=== PATIENT | female | born 1970 | race Caucasian/White ===

== ENCOUNTER 2016-12-16 02:22 | Emergency (ER) | payer OTHER ==
[~2016-12-16] VITALS: Ht 170.2 cm; Wt 90.7 kg
[2016-12-16] MEDS ORDERED: METF500T4 PO (02:36)
[2016-12-16] MEDS ORDERED: PSEU30TA37 PO (02:36)
[2016-12-16] MEDS ORDERED: OMEP20TA7 PO (02:36)
[2016-12-16] MEDS ORDERED: TIZA4CAP PO (02:47)
[2016-12-16] MEDS ORDERED: METH4TAB PO (02:47)
[2016-12-16] MEDS ORDERED: TRAM-42 PO (02:47)
--- NOTE | 2016-12-16 02:47 | ED Back Pain ---
General Chief Complaint: Back Problems Stated Complaint: LEFT LEG & BACK PAIN Nursing Triage Note: LOWER BACK PAIN RADIATING TO RIGHT LEG Nursing Sepsis Screen: No Definite Risk Source of Information: Patient History of Present Illness Time Seen by Provider: 02:30 Initial Comments PT ARRIVES VIA POV--DROVE SELF HERE PT C/O LOW BACK PAIN RADIATING DOWN LEFT LEG THIS IS A CHRONIC PROBLEM FOR AT LEAST 3 YEARS, AND HAS BEEN WORSE SINCE SUNDAY EVENING 12/14/16 C/O TINGLING AND "HOT SPOTS" TO VARIOUS PARTS OF LEFT LEG AND FOOT--ALSO A CHRONIC PROBLEM NO DIFFICULTY WITH BOWEL OR BLADDER FUNCTION NO RECENT INJURY OR UNUSUAL ACTIVITY PT STATES SHE HAD A WORK RELATED INJURY 4 YEARS AGO--WAS BENDING OVER AND SOMEONE RAN INTO THE BACK OF HER AND HAS HAD PAIN IN LOWER BACK SINCE. RADIATION OF PAIN DOWN LEFT LEG IS ALSO A CHRONIC PROBLEM PT STATES SHE HAS PROBLEMS WITH DISCS AT L4 - L5 AND L5-S1 HAS NOT HAD SURGERY, BUT GOES TO PAIN MANAGEMENT IN [facility] AND HAS EPIDURAL SHOTS EVERY 3-4 MONTHS, LAST ONE WAS IN AUGUST PT STATES SHE MOVED HERE IN APRIL OF THIS YEAR, FROM [facility]--WORKS AT [employer] [facility] [place] HAS NOT ATTEMPTED TO ESTABLISH CARE WITH ANY LOCAL PHYSICIAN, AND STATES SHE PLANS ON CONTINUING TO HAVE ALL OF HER MEDICAL CARE DONE IN [place] AND AT [facility] [place]. PT STATES [facility] AT THE [facility] [place] [facility] THIS SAME PROBLEM, WAS GIVEN STEROIDS WITH TEMPORARY RELIEF. Allergies and Home Medications Allergies Coded Allergies: Penicillins (Verified Allergy, Unknown, 12/16/16) Sulfa (Sulfonamide Antibiotics) (Verified Allergy, Unknown, 12/16/16) acetaminophen (Verified Allergy, Unknown, 12/16/16) hydrocodone (Verified Allergy, Unknown, 12/16/16) latex (Verified Allergy, Unknown, 12/16/16) Home Medications Metformin HCl 500 Mg Tablet, Unknown Dose PO, (Reported) Methylprednisolone 4 Mg Tab.ds.pk, 4 MG PO UD, #1 Prescribed by: QI KOEHLER on 12/16/16 0247 Omeprazole 20 Mg Tablet.dr, 20 MG PO, (Reported) Pseudoephedrine HCl 30 Mg Tablet, Unknown Dose PO, (Reported) Tizanidine HCl 4 Mg Capsule, 4 MG PO TID, #15 Prescribed by: QI KOEHLER on 12/16/167 Tramadol HCl 50 Mg Tablet, 50 MG PO Q4H, #20 Prescribed by: QI KOEHLER on 12/16/167 Constitutional: no symptoms reported Respiratory: no symptoms reported Cardiovascular: no symptoms reported Gastrointestinal: no symptoms reported Genitourinary: no symptoms reported Control/STD Prophylaxis: Other (BTL) Musculoskeletal: see HPI, back pain Skin: no symptoms reported Psychiatric/Neurological: See HPI, Paresthesia Past Skcamld-Ozisom-Wakvdu Hx Patient Social History Alcohol Use: Denies Use Recreational Drug Use: No Smoking Status: Never a Smoker Recent Foreign Travel: No Contact w/Someone Who Travel: No Recent Infectious Disease Expo: No Recent Hopitalizations: No Immunizations Up To Date Tetanus Booster (TDap): Unknown Seasonal Allergies Seasonal Allergies: No Surgeries History of Surgeries: Yes (RIGHT SHOULDER, ELBOW SURGERY) Surgeries: Section, Orthopedic, Tubal Ligation Respiratory History of Respiratory Disorde: No Cardiovascular History of Cardiac Disorders: No Neurological History of Neurological Disord: No Reproductive System : No 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 Genitourinary History of Genitourinary Disor: No Gastrointestinal History of Gastrointestinal Di: Yes Gastrointestinal Disorders: Gastroesophageal Reflux Musculoskeletal History of Musculoskeletal Dis: Yes (CHRONIC LOWER BACK PAIN WITH CHRONIC LEFT SIDED SCIATICA) Musculoskeletal Disorders: Degenerate Disk Disease, Chronic Back Pain Endocrine History of Endocrine Disorders: Yes ("HORMONE RESISTANCE" --"THYROID, ESTROGEN AND INSULIN RESISTANT" PER PT--OBESITY) Endocrine Disorders: Diabetes, Non-Insulin dep HEENT History of HEENT Disorders: No Cancer History of Cancer: No Psychosocial History of Psychiatric Problem: No Integumentary History of Skin or Integumenta: No Blood Transfusions History of Blood Disorders: No Physical Exam Vital Signs Vital Sign - Last 12Hours 12/16/16 02:36 Temp 96.5 Pulse 93 Resp 18 B/P (MAP) 131/97 Pulse Ox 97 O2 Delivery Room Air Capillary Refill : Less Than 3 Seconds General Appearance: No Apparent Distress, Obese, Other (VERY DRAMATIC) Neck: Normal Inspection Cardiovascular: Regular Rate, Rhythm, No Edema, No Murmur, Normal Peripheral Pulses Respiratory: Normal Breath Sounds Gastrointestinal: Soft Back: Other (TENDERNESS TO LUMBAR AREA WITH PINPOINT TENDERNESS OVER LEFT SI JOINT, + LEFT STRAIGHT LEG RAISING AT LESS THAN 30 DEGREES. EXAGGERATED PAIN RESPONSE. 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 Referrals: NO,LOCAL PHYSICIAN (PCP/Family) Primary Care Physician Patient Instructions: MANAGING YOUR CHRONIC PAIN, Sciatica (DC) Add. Discharge Instructions: ALTERNATE ICE AND HEAT TO SORE AREAS AT 20 MINUTE INTERVALS FOLLOW UP WITH DRJuan Jose OF CHOICE NEXT WEEK FOR FURTHER CARE AND TO ESTABLISH CARE WITH LOCAL DR. --LIST PROVIDED All discharge instructions reviewed with patient and/or family. Voiced understanding. 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
[2016-12-16] MEDS: KETOROLAC 60 MG/2 ML VIAL IM ONE (02:50)
[2016-12-16 02:56] VITALS: BP 131/97
== END 2016-12-16 02:54 | disposition home or self-care (01) ==
LOC: ER 02:26
DX: M54.32 Sciatica, left side (principal); K21.9 Gastro-esophageal reflux disease without esophagitis; E11.9 Type 2 diabetes mellitus without complications; Z79.84 Long term (current) use of oral hypoglycemic drugs; Z98.51 Tubal ligation status; Z87.59 Personal history of other complications of pregnancy, childbirth and the puerperium
CPT/HCPCS: 99284

== ENCOUNTER 2017-03-28 03:21 | Emergency (ER) | payer OTHER ==
[~2017-03-28] VITALS: Ht 170.2 cm; Wt 90.7 kg
[~2017-03-28 03:21] MED LIST: METF500T4 PO; METH4TAB PO; OMEP20TA7 PO; PSEU30TA37 PO; TIZA4CAP PO; TRAM-42 PO
[2017-03-28] MEDS ORDERED: NS IV 1000 ML 1,000 ML IV ONE (03:53)
[2017-03-28] MEDS ORDERED: KETOROLAC 30 MG/ML VIAL IVP ONE (04:00)
[2017-03-28] MEDS ORDERED: ONDANSETRON 4 MG/2 ML (SDV) Z0FRAN IVP ONE (04:00)
[2017-03-28 04:17] LABS: BASOPHILS % (AUTO) 0 % (0-10); EOSINOPHILS % (AUTO) 0 % (0-10); HEMATOCRIT 41 % (35-52); HEMOGLOBIN 14.2 G/DL (11.5-16.0); LYMPHOCYTES # (AUTO) 0.5 X 10^3 (1.0-4.0); LYMPHOCYTES % (AUTO) 10 % (12-44); MEAN CORPUSCULAR HEMOGLOBIN 30 PG (25-34); MEAN CORPUSCULAR HGB CONC 35 G/DL (32-36); MEAN CORPUSCULAR VOLUME 88 FL (80-99); MEAN PLATELET VOLUME 10.5 FL (7.4-10.4); MONOCYTES # (AUTO) 0.5 X 10^3 (0.0-1.0); MONOCYTES % (AUTO) 9 % (0-12); NEUTROPHILS # (AUTO) 3.9 X 10^3 (1.8-7.8); NEUTROPHILS % (AUTO) 80 % (42-75); PLATELET COUNT 159 10^3/uL (130-400); RED BLOOD COUNT 4.71 10^6/uL (4.35-5.85); RED CELL DISTRIBUTION WIDTH 12.7 % (10.0-14.5); WHITE BLOOD COUNT 4.8 10^3/uL (4.3-11.0)
[2017-03-28 04:39] LABS: ALANINE AMINOTRANSFERASE 30 U/L (0-55); ALBUMIN 3.6 GM/DL (3.2-4.5); ALKALINE PHOSPHATASE 62 U/L (40-136); BILIRUBIN,TOTAL 0.4 MG/DL (0.1-1.0); BUN/CREATININE RATIO 12; CALCIUM 9.2 MG/DL (8.5-10.1); CARBON DIOXIDE 24 MMOL/L (21-32); CHLORIDE 103 MMOL/L (98-107); CREATININE SERUM 0.93 MG/DL (0.60-1.30); GFR ESTIMATED > 60; GLUCOSE 129 MG/DL (70-105); SODIUM 137 MMOL/L (135-145); TOTAL PROTEIN 7.1 GM/DL (6.4-8.2)
[2017-03-28] MEDS ORDERED: ONDA4TAB8 SL (04:54)
[2017-03-28] MEDS ORDERED: OSLT75C PO (04:54)
--- NOTE | 2017-03-28 04:55 | ED General ---
General Chief Complaint: Cough/Cold/Flu Symptoms Stated Complaint: FEVER,VOMITING,WEAK,BACK OF NECK HURTS Nursing Triage Note: cough, fever, neck pain vomitting x3 days Nursing Sepsis Screen: Possible Sepsis Risk Source of Information: Patient Exam Limitations: No Limitations History of Present Illness Date Seen by Provider: Mar 28, 2017 Time Seen by Provider: 03:25 Initial Comments This 46-year-old woman presents to the emergency room with cough, fever, nausea , vomiting, neck ache, and weakness that started last night. Allergies and Home Medications Allergies Coded Allergies: Penicillins (Verified Allergy, Unknown, 12/16/16) Sulfa (Sulfonamide Antibiotics) (Verified Allergy, Unknown, 12/16/16) acetaminophen (Verified Allergy, Unknown, 12/16/16) hydrocodone (Verified Allergy, Unknown, 12/16/16) latex (Verified Allergy, Unknown, 12/16/16) Home Medications Metformin HCl 500 Mg Tablet, Unknown Dose PO, (Reported) Ondansetron 4 Mg Tab.rapdis, 4 MG SL Q4H PRN for NAUSEA/VOMITING-1ST LINE, #10 Prescribed by: DEDE MOYA on 03/28/17 0454 Oseltamivir Phosphate 75 Mg Cap, 75 MG PO BID, #10 Prescribed by: DEDE MOYA on 03/28/17 0454 Constitutional: see HPI EENTM: no symptoms reported Respiratory: see HPI Cardiovascular: no symptoms reported Gastrointestinal: see HPI Genitourinary: no symptoms reported : No Musculoskeletal: see HPI Skin: no symptoms reported Psychiatric/Neurological: No Symptoms Reported Hematologic/Lymphatic: No Symptoms Reported Past Oojmfml-Gbdzgt-Pddray Hx Patient Social History Alcohol Use: Denies Use Recreational Drug Use: No Recent Foreign Travel: No Contact w/Someone Who Travel: No Recent Infectious Disease Expo: No Recent Hopitalizations: No Immunizations Up To Date Tetanus Booster (TDap): Unknown Seasonal Allergies Seasonal Allergies: No Surgeries History of Surgeries: Yes (RIGHT SHOULDER, left ulnar nerve entrapment) Surgeries: Abdominal (uterine ablation), Section, Gallbladder, Orthopedic, Tubal Ligation Respiratory History of Respiratory Disorde: No Cardiovascular History of Cardiac Disorders: No Neurological History of Neurological Disord: No Reproductive System : 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 Genitourinary History of Genitourinary Disor: No Gastrointestinal History of Gastrointestinal Di: Yes Gastrointestinal Disorders: Gastroesophageal Reflux Musculoskeletal History of Musculoskeletal Dis: Yes (CHRONIC LOWER BACK PAIN WITH CHRONIC LEFT SIDED SCIATICA) Musculoskeletal Disorders: Degenerate Disk Disease, Chronic Back Pain Endocrine History of Endocrine Disorders: Yes Endocrine Disorders: Diabetes, Non-Insulin dep (insulin resistant or prediabetic) HEENT History of HEENT Disorders: No Cancer History of Cancer: No Psychosocial History of Psychiatric Problem: No Integumentary History of Skin or Integumenta: No Blood Transfusions History of Blood Disorders: No Physical Exam Vital Signs Vital Signs - First Documented 03/28/17 03:30 Temp 100.5 Pulse 96 Resp 18 B/P (MAP) 147/101 (116) Pulse Ox 95 O2 Delivery Room Air Capillary Refill : Less Than 3 Seconds General Appearance: No Apparent Distress, WD/WN HEENT: PERRL/EOMI, TMs Normal, Normal ENT Inspection, Pharynx Normal Neck: Full Range of Motion, Normal Inspection, Supple Respiratory: Lungs Clear, Normal Breath Sounds, No Accessory Muscle Use, No Respiratory Distress Cardiovascular: Regular Rate, Rhythm, No Edema, No Murmur Gastrointestinal: Normal Bowel Sounds, Non Tender, Soft Extremity: Normal Inspection, No Pedal Edema Neurologic/Psychiatric: Alert, Oriented x3, No Motor/Sensory Deficits, Normal Mood/Affect, 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3-11.0 10^3/uL Red Blood Count 4.71 4.35-5.85 10^6/uL Hemoglobin 14.2 11.5-16.0 G/DL Hematocrit 41 35-52 % Mean Corpuscular Volume 88 80-99 FL Mean Corpuscular Hemoglobin 30 25-34 PG Mean Corpuscular Hemoglobin Concent 35 32-36 G/DL Red Cell Distribution Width 12.7 10.0-14.5 % Platelet Count 159 130-400 10^3/uL Mean Platelet Volume 10.5 H 7.4-10.4 FL Neutrophils (%) (Auto) 80 H 42-75 % Lymphocytes (%) (Auto) 10 L 12-44 % Monocytes (%) (Auto) 9 0-12 % Eosinophils (%) (Auto) 0 0-10 % Basophils (%) (Auto) 0 0-10 % Neutrophils # (Auto) 3.9 1.8-7.8 X 10^3 Lymphocytes # (Auto) 0.5 L 1.0-4.0 X 10^3 Monocytes # (Auto) 0.5 0.0-1.0 X 10^3 Eosinophils # (Auto) 0.0 0.0-0.3 10^3/uL Basophils # (Auto) 0.0 0.0-0.1 10^3/uL Sodium Level 137 135-145 MMOL/L Potassium Level 4.0 3.6-5.0 MMOL/L Chloride Level 103 98-107 MMOL/L Carbon Dioxide Level 24 21-32 MMOL/L Anion Gap 10 5-14 MMOL/L Blood Urea Nitrogen 11 7-18 MG/DL Creatinine 0.93 0.60-1.30 MG/DL Estimat Glomerular Filtration Rate > 60 BUN/Creatinine Ratio 12 Glucose Level 129 H 70-105 MG/DL Calcium Level 9.2 8.5-10.1 MG/DL Total Bilirubin 0.4 0.1-1.0 MG/DL Aspartate Amino Transf (AST/SGOT) 35 H 5-34 U/L Alanine Aminotransferase (ALT/SGPT) 30 0-55 U/L Alkaline Phosphatase 62 40-136 U/L Total Protein 7.1 6.4-8.2 GM/DL Albumin 3.6 3.2-4.5 GM/DL Micro Results Microbiology 03/28/17 Influenza Types A,B Antigen (RAVI) - Final, Complete My Orders Orders - DEDE BROWN MD Cbc With Automated Diff (03/28/17 03:53) Comprehensive Metabolic Panel (03/28/17 03:53) Chest Pa/Lat (2 View) (03/28/17 03:53) Saline Lock/Iv-Start (03/28/17 03:53) Ns Iv 1000 Ml (Sodium Chloride 0.9%) (03/28/17 03:53) Ondansetron Injection (Zofran Injectio (03/28/17 04:00) Ketorolac Injection (Toradol Injection) (03/28/17 04:00) Influenza A And B Antigens (03/28/17 04:12) Medications Given in ED Current Medications Medications Dose Ordered Sig/Fern Route Start Time Stop Time Status Last Admin Dose Admin Ketorolac Tromethamine 30 mg ONCE ONCE IVP 03/28/17 04:00 03/28/17 04:01 DC 03/28/17 04:08 30 MG Ondansetron HCl 8 mg ONCE ONCE IVP 03/28/17 04:00 03/28/17 04:01 DC 03/28/17 04:07 8 MG Sodium Chloride 1,000 ml @ 0 mls/hr Q0M ONCE IV 03/28/17 03:53 03/28/17 03:56 DC 03/28/17 04:08 0 MLS/HR Vital Signs/I&O Vital Sign - Last 12Hours 03/28/17 03:30 Temp 100.5 Pulse 96 Resp 18 B/P (MAP) 147/101 (116) Pulse Ox 95 O2 Delivery Room Air Capillary Refill : Less Than 3 Seconds Blood Pressure Mean: 116 Progress Note : Progress Note Patient received Zofran, Toradol, and a liter of IV fluids. Influenza screen was positive. Prophylactic Tamiflu was prescribed to her roommate. Diagnostic Imaging Diagonstic Imaging: Xray Plain Films/CT/US/NM/MRI: chest Comments Chest x-ray viewed by me. Report not yet available. No acute abnormality appreciated. Departure Impression Impression: Primary Impression: Influenza A Additional Impression: Nausea and vomiting Qualified Codes: R11.2 - Nausea with vomiting, unspecified Disposition: HOME, SELF-CARE Condition: Improved Departure-Patient Inst. Decision time for Depature: 04:45 Referrals: NO,LOCAL PHYSICIAN (PCP/Family) Primary Care Physician Patient Instructions: Flu Add. Discharge Instructions: Drink plenty of clear liquids. You may take ibuprofen up to 600 mg every 6 hours and/or Tylenol (acetaminophen) up to 1000 mg every 6 hours as needed for pain and fever. Use the Zofran (ondansetron) dissolved under the tongue every 4 hours as needed for nausea and vomiting. Complete all 10 doses of Tamiflu. Return to care if symptoms worsen All discharge instructions reviewed with patient and/or family. Voiced understanding. Scripts Ondansetron (Zofran Odt) 4 Mg Tab.rapdis 4 MG SL Q4H Y for NAUSEA/VOMITING-1ST LINE, #10 TAB Prov: DEDE BROWN MD 03/28/17 Oseltamivir Phosphate (Tamiflu) 75 Mg Cap 75 MG PO BID, #10 CAP Prov: DEDE BROWN MD 03/28/17 DEDE BROWN MD Mar 28, 2017 04:55
[2017-03-28 05:17] VITALS: BP 157/93
--- NOTE | 2017-03-28 06:45 | Diagnostic Imaging Report ---
INDICATION: Shortness of breath. Febrile. FINDINGS: PA and lateral chest show the lungs to be well-aerated. There are no infiltrates. Heart is not enlarged. There is no pulmonary edema. No hilar adenopathy. No pneumothorax or pleural effusion. IMPRESSION: Negative PA and lateral chest. Dictated by: Dictated on workstation # [id number]
== END 2017-03-28 05:17 | disposition home or self-care (01) ==
LOC: EDUNIT# 03:21 → ER 03:23
DX: J10.1 Influenza due to other identified influenza virus with other respiratory manifestations (principal); R11.2 Nausea with vomiting, unspecified; K21.9 Gastro-esophageal reflux disease without esophagitis; E11.9 Type 2 diabetes mellitus without complications; Z88.5 Allergy status to narcotic agent; Z88.0 Allergy status to penicillin; Z88.2 Allergy status to sulfonamides; Z91.040 Latex allergy status; Z79.84 Long term (current) use of oral hypoglycemic drugs; Z87.59 Personal history of other complications of pregnancy, childbirth and the puerperium; Z98.51 Tubal ligation status
CPT/HCPCS: 36415; 71046; 80053; 85025; 87804; 96361; 96374; 96375